=== PATIENT | male | born 1935 | race Caucasian/White ===

== ENCOUNTER → 2023-10-15 09:27 | Outpatient (REF) | payer MEDICARE, SELFPAY | LOC: RAD 09:27 | PROVIDERS: ATTENDING PHYSICIAN Internal Medicine Geriatric Medicine | DX: R33.9 Retention of urine, unspecified (principal); R82.998 Other abnormal findings in urine | CPT/HCPCS: 76770 ==

== ENCOUNTER 2023-12-26 20:54 | Inpatient (IN) | payer MEDICARE, SELFPAY ==
[2023-12-26 16:39] VITALS: BP 162/78; BMI 21.0
[2023-12-26 16:44] VITALS: BP 162/78
[2023-12-26 17:00] VITALS: BP 156/78
[2023-12-26 17:03] LABS: % Basophils 0.8 % (0-2); % Eosinophils 1.3 % (0-6); % Immature Granulocytes 0.4 % (0-0.5); % Lymphocytes 32.7 % (20.5-51.1); % Neutrophils 51.8 % (42.2-75.2); Absolute Eosinophils 0.1 10^3/uL (0-0.7); Absolute Lymphocytes 1.7 10^3/uL (1.2-3.4); Absolute Monocytes 0.7 10^3/uL (0.1-0.6); Absolute Neutrophils 2.8 10^3/uL (1.4-6.5); Hematocrit 37.2 % (39.0-52.0); Hemoglobin 12.6 g/dL (13.0-18.0); Mean Corp Hgb Conc. 33.9 g/dL (33.0-37.0); Mean Corpuscular Hgb 28.9 pg (27.0-31.0); Mean Corpuscular Volume 85.3 fL (80.0-94.0); Mean Platelet Volume 11.2 fL (7.4-10.4); Nucleated Red Blood Cells % 0 % (-); Platelet Count 149 10^3/uL (130-400); Red Blood Cell Count 4.36 10^6/uL (4.70-6.10); Red Cell Dist. Width 16.1 % (11.5-14.5); White Blood Cell Count 5.3 10^3/uL (4.8-10.8)
[2023-12-26 17:23] LABS: ALT (SGPT) 24 U/L (0-50); AST (SGOT) 43 U/L (17-59); Albumin 3.2 g/dl (3.5-5.0); Alkaline Phosphatase 92 U/L (38-126); Blood Urea Nitrogen 31 mg/dl (9-20); Calcium 9.6 mg/dl (8.4-10.2); Carbon Dioxide 29 mmol/L (22-30); Chloride 107 mmol/L (98-107); Estimated Creatinine Clearance 30 ml/min; Glucose 105 mg/dl (70-99); Potassium 3.7 mmol/L (3.5-5.1); Sodium 140 mmol/L (135-145); Total Bilirubin 1.1 mg/dl (0.2-1.3); Total Protein 5.9 g/dl (6.3-8.2); eGFR 38.06
[2023-12-26 18:00] VITALS: BP 148/83
[2023-12-26 18:05] LABS: Urine Albumin 1+ (Neg - Trace); Urine Bilirubin 1+ (Negative); Urine Character Very Cloudy (Clear); Urine Color Yellow; Urine Glucose Negative (Negative); Urine Ketone Negative (Negative); Urine Leukocyte 2+ (Negative); Urine Nitrite Positive (Negative); Urine Occult Blood 1+ (Negative); Urine Specific Gravity 1.015 (<1.030); Urine Urobilinogen 2+ (Neg - 1+)
[2023-12-26 18:27] LABS: Urine Bacteria Many (Negative); Urine White Cell >100 /HPF (0-5)
[2023-12-26 19:00] VITALS: BP 187/94
--- NOTE | 2023-12-26 19:07 | ED.GENMED ---
History of Present Illness
General
Chief Complaint: Failure to Thrive
Source: patient and family (Daughter)
Exam Limitations: none
Time Seen by Provider: 12/26/23 16:40
Nursing documentation reviewed up to this point in time: agreed with
Travel History
Have you had any contact with someone who has COVID-19?: No
Do you have any symptoms of coronavirus? Fever > 100 degrees, chills, cough, shortness of breath, sore throat, loss of taste or smell, muscle aches, or headache?: No
History of Present Illness
History of Present Illness:
Patient to ED for increasing weakness, confusion, falls. Daughter states over the past 2 weeks he has been weak. This week he has had 2 falls. Today she reports he was confused. He lives alone in independent living at [facility]. She states he
told her he fell this AM but could not remember what happened. Does not remember if he hit his head. Brought to ED via EMS for eval.
Past History
Past History
ED Past Medical History: HTN, Hypercholesterolemia and Other (peripheral arterial disease, spinal stenosis, blind right eye)
ED Past Surgical History: Cardiac (Stent X1) and Orthopedic
Social History
Tobacco: Former smoker
Alcohol: None
Drug: None
Personal:
Living: assisted
Employment: Retired
Family History
Family History: Hypertension and CAD
Review of Systems
Review of Systems
Allergies reviewed?: Yes
All Other Systems: ROS reviewed and negative except as documented in HPI and ROS
Constitutional: Reports no symptoms
EENT: Reports no symptoms
Respiratory: Reports no symptoms
Cardiac: Reports no symptoms
ABD/GI: Reports no symptoms
: Reports no symptoms
Musculoskeletal: Reports no symptoms
Skin: Reports no symptoms
Neurological: Reports weakness
Psychiatric: Reports no symptoms
Phy Exam
General Physical Exam
General Presentation: no apparent distress
General age: appears stated age
General Skin: warm and dry
General Habitus: frail
Cardiovascular Exam
Cardiovascular Exam: regular rate/rhythm
Pulmonary Exam
Pulmonary Exam: lungs clear, no respiratory distress and chest non tender
Gastrointestinal Exam
Gastrointestinal Exam: non tender and soft
Neurological Exam
Neurological Exam: alert, oriented x3, CN II-XII intact, no motor deficits and no sensory deficits
Cutler Coma Scale
Eye Opening: Spontaneous
Verbal Response: Oriented
Motor Response: Obeys Commands
GCS Total Score: 15
Musculoskeletal Exam
Musculoskeletal Exam: full ROM and neuro vasc intact
Skin Exam
Skin Exam: normal color, warm/dry and no rash
Psychiatric Exam
Psychiatric Exam: normal mood/affect
Course
Orders/Labs/Results
Orders:
Orders
12/26/23 16:43
TSH Reflex To Free T4 Routine
12/26/23 16:52
Electrocardiogram (*1) Urgent
Reason for Study: Vertigo / Dizzy
EKG- Treatment ONCE
12/26/23 16:53
CT Head W/o Iv Contrast Urgent
Comment:
Reason For Exam: fall
Complete Blood Count/With Diff Urgent
Comprehensive Metabolic Panel Urgent
Creatine Phosphokinase Urgent
12/26/23 17:53
Urinalysis Reflex To Culture Urgent
Date Specimen was Collected: 12/26/23
Time Specimen was Collected: 17:51
Urine Microscopic Reflex Cult Urgent
Urine Culture Urgent
JESSICA Source: U
Specimen Description:
Date Specimen was Collected: 12/26/23
Time Specimen was Collected: 17:51
12/26/23 19:14
Cefepime HCl [Maxipime] 2,000 mg IV NOW STA
12/26/23 20:11
Admit/Transfer Patient As Directed
Co-Sign Provider:
Level of Care: Inpatient admission
Assign to:: Telemetry
Physician / Group: Ceasar
Diagnosis: UTI, Frequent Falls
Reason for Telemetry: Arrhythmia
Date to Stop Telemetry: 12/29/23
Time to Stop Telemetry: 11:00
Reason for Hospitalization: UTI, Frequent Falls
Expected length of stay greater than two midnights?: Yes
ELOS- Estimated Length of Stay in days: 3
I certify the patient meets the requirements for IP care: Yes
12/26/23 20:12
Code Status As Directed
Resuscitation Status: Do not resuscitate
Reached after discussion with pt or family/Healthcare POA: Yes
12/26/23 20:16
DNR Bracelet Application ONCE
12/26/23 21:30
Acetaminophen [Tylenol] 650 mg PO Q4HPRN PRN
HydrALAZINE [Apresoline] 5 mg IV Q6HPRN PRN
Lactated Ringers [Lr] 1,000 ml IV 80 mls/hr
Polyethylene Glycol Powder [Miralax] 17 grams PO DAILY PRN
12/26/23 21:30
Activity As Directed
Activity Level: Ambulate
With Assistance
Bladder Scan As Directed
Follow Bladder Retention/Intermittent Cath Algorithm?: Yes
PRN if no void in __ hours: 6
Frequency: Per Retention Algorithm
If Bladder Scan Result >: 400
then:: Straight cath
EKG with chest pain [ECG as needed] As Directed
ECG as needed for:: Chest Pain
I/O [Intake/ Output] As Directed
Frequency: Per unit guidelines
Neurological Checks As Directed
Frequency: q4h
Orthostatic Vital Signs As Directed
Orthostatic VS Frequency: BID
Pneumatic Compression Sleeves As Directed
Type: Knee high
Straight Cath As Directed
Frequency: Per Retention Algorithm
Additional Instructions: straight cath as needed per acute urinary retention algorithm for 24 hrs
Additional Instructions: for bladder scan greater than 400 mL
Vital Signs As Directed
Frequency: Per unit guidelines
Weight As Directed
Frequency: Daily
Oxygen Therapy [O2 Therapy] [RESP] Routine
Titrate/Wean O2 to maintain O2 sat greater than (%): 94
Ot Eval And Treat Routine
PT Consult [Pt Eval And Treat] Routine
Activity Level: Ambulate
With Assistance
DX Deep Vein Thrombosis Video Routine
12/27/23 06:00
EKG [Electrocardiogram (*1)] IN AM
Reason for Study: Chest Pain
Regular
At Your Request: Limited Participation
Basic Metabolic Panel IN AM
Complete Blood Count/No Diff IN AM
12/27/23 08:00
Aspirin Low Dose EC [Aspir Low (Enteric Coated)] 81 mg PO DAILY
Atorvastatin [Lipitor] 40 mg PO DAILY
Docusate Sodium [Colace] 100 mg PO BID
Losartan [Cozaar] 50 mg PO DAILY
12/29/23 11:00
DC Protocol for Telemetry ONCE
Abnormal Lab Results
12/26/23 12/26/23
16:53 17:53
RBC 4.36 L 10^6/uL
(4.70-6.10)
Hgb 12.6 L g/dL
(13.0-18.0)
Hct 37.2 L %
(39.0-52.0)
RDW 16.1 H %
(11.5-14.5)
MPV 11.2 H fL
(7.4-10.4)
Absolute Monos (auto) 0.7 H 10^3/uL
(0.1-0.6)
Monocytes % 13.0 H %
(1.7-9.3)
BUN 31 H mg/dl
(9-20)
Creatinine 1.7 H mg/dL
(0.7-1.3)
Glucose 105 H mg/dl
(70-99)
Creatine Kinase 42 L U/L
(55-170)
Total Protein 5.9 L g/dl
(6.3-8.2)
Albumin 3.2 L g/dl
(3.5-5.0)
Ur Occult Blood Reflex 1+ A
(Negative)
Urine Nitrite (Reflex) Positive A
(Negative)
Urine Bilirubin 1+ A
(Negative)
Urine Urobilinogen 2+ A
(Neg - 1+)
Leukocyte Esterase Rfl 2+ A
(Negative)
Urine RBC 3-6 A /HPF
(0-2)
Urine WBC (Reflex) >100 A /HPF
(0-5)
Urine Bacteria (Reflex) Many A
(Negative)
Urine Albumin (Reflex) 1+ A
(Neg - Trace)
12/26/23 16:53
12/26/23 16:53
Vital Signs
Initial and Last Documented VS:
Initial Vital Signs
Temp Pulse Resp BP Pulse Ox
98.5 F 54 16 162/78 95
12/26/23 16:39 12/26/23 16:39 12/26/23 16:39 12/26/23 16:39 12/26/23 16:39
Last Documented Vital Signs
Temp Pulse Resp BP Pulse Ox
98.1 F 52 18 172/83 97
12/26/23 21:47 12/26/23 21:47 12/26/23 21:47 12/26/23 21:47 12/26/23 21:47
*Radiology
Radiology exam reviewed: radiology read reviewed
*Pulse Oximetry
Patient hypoxic: no
*Critical Care Note
Total Time (30-74mins, 75-104mins- exclusive of procedures): Not Applicable
ED Attending Note
-
Portions of this chart may have been created with voice recognition software.� Occasional wrong word or��sound alike� substitutions may have occurred due to the inherent limitations of voice recognition software.
Discharge Plan
Departure
Patient Disposition: Admit
Date of Disposition: 12/26/23
Time of Disposition: 19:15
Presentation/result/management discussed w/ accepting MD/DO: Hospitalist
Patient with high blood pressure during this ER visit?: No
Condition: Fair
Covid-19: Not Applicable
Discharge Problem:
Weakness, Urinary tract infection
Interventions
Interventions:
*Risk Screen - Suicide Last Done: 12/26/23 16:39
*General Assessment Last Done: 12/26/23 16:39
*Neglect/Abuse Screening Last Done: 12/26/23 16:39
ED- Fall Risk Assessment Last Done: 12/26/23 16:46
*ED COVID-19 Vaccine History Last Done: 12/26/23 16:39
*Nursing Disposition Last Done: 12/26/23 21:31
Discharge Date and Time
Discharge Date/Time: 12/26/23 21:31
[2023-12-26] MEDS: MAXIPIME 2000 MG IV (19:34)
--- NOTE | 2023-12-26 20:18 | HPS.HSE ---
Family Physician
-
Family Physician: Jose Rich
Chief Complaint
-
Falls
History of Present Illness
Patient is an 88y M with PMH significant for hypertension, CKD and frequent falls who presents to ED for evaluation of frequent falls. Patient states that he was brought in by his daughter given concern with frequency of falling. Patient notes
that he had 2 episodes of falling yesterday. He has struck his head during the falls at times - but he denies any LOC. He denies any prodrome of lightheadedness, dizziness, chest pain or dyspnea. He states that he is 'unsteady' and notes that he
loses his balance easily. Patient states that there is a chance he will fall 'any time I get up'.
He states that he has fallen in all directions - not typically to one side.
Patient indicates that he spends about 75% of his time in bed. He complains of cold intolerance.
He complains of incontinence of bowel and bladder - and notes that efforts to get to the bathroom are what typically result in his falls.
He complains of pain across his very low back at present. He denies any other areas of pain including headache. He denies any radicular pain into the buttocks or legs.
Medical History
Past Medical History
Past Medical History: Reports Other
Additional Past Medical History:
Hypertension
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
Lumbar DDD / Spinal Stenosis
CKD III
ASCVD
Past Surgical History: Reports Other
Additional Past Surgical History:
PTCA with Stent
Bilateral MICKEY
Social History
Tobacco: Former Smoker (Quit 20 years ago. > 50 pack years total use.)
Alcohol: None
Drug: None
Family History
Family History: Not pertinent
Allergies / Home Medications
Allergies reflects when Allergies were last updated in [facility].
Home Medications with original date entered in [employer]
Allergy/Medication List:
Allergies
Allergy/AdvReac Type Severity Reaction Status Date / Time
No Known Allergies Allergy Verified 11/21/21 03:13
Home Medications
losartan 50 mg tablet 50 mg PO DAILY Blood pressure 05/12/18
aspirin 81 mg tablet,delayed release 81 mg PO DAILY Blood clot prevention/tx 05/30/19
atorvastatin 40 mg tablet 40 mg PO DAILY High cholesterol 11/21/21
Bifidobacterium infantis 4 mg capsule (Align) 4 mg PO DAILY 12/26/23
cholecalciferol (vitamin D3) 25 mcg (1,000 unit) tablet (Vitamin D3) 25 mcg PO DAILY 12/26/23
Review of Systems
-
History Source: Patient
Constitutional: Reports Fatigue; Denies Fever or Chills
Respiratory: Denies Cough or Trouble Breathing
Cardiac: Denies Chest Pain or Palpitations
Abdomen/GI: Reports Other (Loose stools / incontinence.); Denies Abdominal Pain, Nausea or Vomiting
: Reports Incontinence; Denies Dysuria
Musculoskeletal: Reports Other (Low Back Pain); Denies Joint Pain or Edema
Neurological: Reports Weakness; Denies Dizzy or Headache
Psych: Denies Depression or Anxiety
Physical Exam
Vital Signs
Vital Signs
Temp Pulse Resp BP Pulse Ox
98.5 F 48 14 187/94 93
12/26/23 16:39 12/26/23 19:35 12/26/23 19:35 12/26/23 19:00 12/26/23 19:35
Physical Exam
General: Other (88y M in no acute distress. Very bundled in blankets.)
HEENT: PERRLA and Other (Dry MM.)
Respiratory: Clear; No Wheezes, Rales or Rhonchi
Cardiac: S1/S2 and Bradycardia; No Murmur
GI: Soft, Non Tender, Non Distended and Normal Bowel Sounds
Musculoskeletal: No Clubbing, No Cyanosis and No Edema
Neuro: Awake, Alert, Oriented and Other (Bradykinesia including slowness of speech. No focal weakness appreciated.)
Psych: No Anxious or Depressed
Laboratory Results
-
12/26/23 16:53
12/26/23 16:53
Laboratory Results
Total Bilirubin 1.1 mg/dl (0.2-1.3) 12/26/23 16:53
AST 43 U/L (17-59) 12/26/23 16:53
ALT 24 U/L (0-50) 12/26/23 16:53
Alkaline Phosphatase 92 U/L (38-126) 12/26/23 16:53
Impression/Plan
-
A/P: Patient is an 88y M with PMH significant for spinal stenosis, HTN and CKD who presents to ED complaining of frequent falls.
Frequent Falls
Lumbar Spinal Stenosis
- Admit for further evaluation and treatment.
- Symptoms appear to be chronic and are very likely related to spinal stenosis +/- significant deconditioning at this point.
- Issues with incontinence may also be related to spinal stenosis +/- urge incontinence, difficulty getting to facilities due to unsteady gait.
- PT / OT evaluations.
- Consider repeat spinal imaging - though with such chronicity, doubt that any changes would be reversible at this point.
- Follow for gait stability.
- CM eval for discharge plans.
UTI
- UA consistent with UTI and complaints of incontinence - although this seems chronic.
- IV ceftriaxone for now and follow-up culture data.
- Follow for any improvement in urinary incontinence, gait, etc.
Benign Hypertension
- BP elevated in the ED.
- Continue outpatient losartan.
- Hydralazine PRN for very high BP.
- Adjust regimen as needed for improved control.
Bradycardia
- Stable. Again, this is a known and chronic issue.
- Has not had rates / pauses to a degree that would warrant PPM placement in the past.
- Monitor on telemetry for now.
- Check TFTs.
- Consider Cardio eval if rates decrease or significant pauses are appreciated.
ASCVD
- Stable. No complaints of chest pain.
- History of PTCA with stent.
- Continue ASA, statin, etc.
DVT Prophylaxis: SCDs
Code Status: DNR
[2023-12-26 21:47] VITALS: BP 172/83
[2023-12-26 21:49] VITALS: BMI 20.5
[2023-12-26 22:03] LABS: Creatine Phosphokinase 42 U/L (55-170)
[2023-12-26] MEDS: TYLENOL 650 MG PO (22:13)
[2023-12-26] MEDS: LR 1000 IV (22:14)
[2023-12-26 22:45] LABS: TSH Reflex To Free T4 2.33 uIU/ml (0.47-4.68)
[2023-12-27] VITALS (8 sets, daily range): BP systolic 108–165; BP diastolic 61–90; PULSE 82–83; O2SAT 96; BMI 20.5
[2023-12-27] MEDS: FLUSH (NSS) 1 FLUSH IV (04:30)
[2023-12-27] MEDS: ROCEPHIN 1000 MG IV (04:30)
[2023-12-27] MEDS: STERILE WATER FOR INJECTION 10 ML IV (04:31)
[2023-12-27 06:20] LABS: Hematocrit 36.1 % (39.0-52.0); Mean Corp Hgb Conc. 33.2 g/dL (33.0-37.0); Mean Corpuscular Hgb 29.1 pg (27.0-31.0); Mean Corpuscular Volume 87.6 fL (80.0-94.0); Platelet Count 130 10^3/uL (130-400); Red Blood Cell Count 4.12 10^6/uL (4.70-6.10); Red Cell Dist. Width 15.9 % (11.5-14.5); White Blood Cell Count 5.3 10^3/uL (4.8-10.8)
[2023-12-27 06:50] LABS: Blood Urea Nitrogen 33 mg/dl (9-20); Calcium 9.1 mg/dl (8.4-10.2); Carbon Dioxide 25 mmol/L (22-30); Chloride 109 mmol/L (98-107); Estimated Creatinine Clearance 33 ml/min; Glucose 83 mg/dl (70-99); Potassium 3.7 mmol/L (3.5-5.1); Sodium 139 mmol/L (135-145); eGFR 44.23
[2023-12-27] MEDS: COZAAR 50 MG PO (08:02)
[2023-12-27] MEDS: ASPIR LOW (ENTERIC COATED) 81 MG PO (08:02)
[2023-12-27] MEDS: COLACE 100 MG PO (08:02)
[2023-12-27] MEDS: LIPITOR 40 MG PO (08:03)
[2023-12-27] MEDS: LR 1000 IV ×2 (10:57→22:11)
--- NOTE | 2023-12-27 11:58 | PTCARENOTE ---
Assumed care of pt at AM shift change. AAOx3 but intermittently confused. Pt with multiple attempts to get OOB unassisted, bed and chair alarms in place. Pt denying pain at this time. Daughter updated on plan of care over the phone.
--- NOTE | 2023-12-27 12:43 | W.PN.HOSP.TC ---
Today's Communication/Plan
-
Monitor vitals
See plan
Trial of Seroquel overnight
Discussed with daughter over the phone
Suspect cognitive impairment
Monitor urine culture
Continue antibiotics
Assessment / Plan
Assessment / Plan
Frequent Falls
Lumbar Spinal Stenosis
- Admit for further evaluation and treatment.
- Symptoms appear to be chronic and are very likely related to spinal stenosis +/- significant deconditioning at this point.
- Issues with incontinence may also be related to spinal stenosis +/- urge incontinence, difficulty getting to facilities due to unsteady gait.
- PT / OT evaluations.
- Consider repeat spinal imaging if symptoms worse - though with such chronicity, doubt that any changes would be reversible at this point.
- Follow for gait stability.
UTI
- UA consistent with UTI and complaints of incontinence - although this seems chronic.
- IV ceftriaxone for now and follow-up culture data.
- Follow for any improvement in urinary incontinence, gait, etc.
Benign Hypertension
- Continue outpatient losartan.
- Hydralazine PRN for very high BP.
- Adjust regimen as needed for improved control.
Bradycardia
- Stable. Again, this is a known and chronic issue.
- Has not had rates / pauses to a degree that would warrant PPM placement in the past.
- Monitor on telemetry for now.
TSH wnl
- Consider Cardio eval if rates decrease or significant pauses are appreciated.
History of CKD 3
Monitor
CAD s/p PCI 2018
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
ASCVD
- Stable. No complaints of chest pain.
- History of PTCA with stent.
- Continue ASA, statin, etc.
Suspect cognitive impairment
no official dx of dementia
CT without acute CVA
patient has been following up outpatient with pcp for possible dementia
trial to seroquel overnight
MRI in 2021 showed moderate to advanced atrophy
DVT Prophylaxis: SCDs
Code Status: DNR
General: Other (88y M in no acute distress)
HEENT: PERRLA and Other (Dry MM.)
Respiratory: Clear; No Wheezes, Rales or Rhonchi
Cardiac: S1/S2 and Bradycardia; No Murmur
GI: Soft, Non Tender, Non Distended and Normal Bowel Sounds
Musculoskeletal: No Clubbing, No Cyanosis and No Edema
Neuro: Awake, Alert, Oriented and Other (Bradykinesia including slowness of speech. No focal weakness appreciated.)
Psych: No Anxious or Depressed
Anticipated Discharge: 24 - 48 hours
Subjective/Interval History
-
Date of Service: December 27, 2023
denies pain
Objective Data
-
Labs:
Laboratory Results
12/27/23 12/27/23
04:29 04:30
WBC 5.3
Hgb 12.0 L
Hct 36.1 L
Plt Count 130
Sodium 139
Potassium 3.7
Chloride 109 H
Carbon Dioxide 25
BUN 33 H
Creatinine 1.5 H
Glucose 83
Calcium 9.1
Vital Signs:
Vital Signs
Temp Pulse Resp BP Pulse Ox
98.1 F 80 18 108/74 96
12/27/23 11:12 12/27/23 11:12 12/27/23 11:12 12/27/23 11:12 12/27/23 11:12
I&O
12/26/23 12/27/23 12/28/23
06:59 06:59 06:59
Intake Total 800 / 800
Output Total 150 / 150
Balance 650 / 650
[2023-12-27] MEDS: STERILE WATER FOR INJECTION 2.10000000000000009 ML IM (14:54)
[2023-12-27] MEDS: ZYPREXA 5 MG IM (14:54)
--- NOTE | 2023-12-27 15:42 | PTCARENOTE ---
Patient with continuous attempts to get OOB without assistance, medsitter in place. Pt unable to be redirected by medsitter and growing increasingly agitated and pulled out IV. made aware, order for IM zyprexa obtained and administered with
adequate relief. Plan of care ongoing.
--- NOTE | 2023-12-27 16:38 | CM ---
center manager reviewed patient's chart and met with patient and spoke with patient's daughter by phone, patient resides at [facility] living, patient was independent with adl's with assistance from daughter and used a walker with
ambulation, physical therapy are recommending skilled placement and patient's daughter has selected [facility], referral sent to [facility] skilled.
Plan; Skilled placement at [facility].
[2023-12-27] MEDS: TYLENOL 650 MG PO (19:29)
[2023-12-27] MEDS: COLACE PO (19:29)
[2023-12-27] MEDS: SEROQUEL 12.5 MG PO (22:11)
[2023-12-28 03:00] VITALS: BP 156/89; BP 175/89; BP 175/97; PULSE 71; PULSE 72
[2023-12-28] MEDS: FLUSH (NSS) 2 FLUSH IV (03:41)
[2023-12-28] MEDS: ROCEPHIN 1000 MG IV (03:42)
[2023-12-28] MEDS: STERILE WATER FOR INJECTION 10 ML IV (03:42)
[2023-12-28 05:38] LABS: % Basophils 0.7 % (0-2); % Eosinophils 0.9 % (0-6); % Immature Granulocytes 0.4 % (0-0.5); % Lymphocytes 23.5 % (20.5-51.1); % Monocytes 10.8 % (1.7-9.3); % Neutrophils 63.7 % (42.2-75.2); Absolute Basophils 0.1 10^3/uL (0-0.2); Absolute Eosinophils 0.1 10^3/uL (0-0.7); Absolute Monocytes 0.9 10^3/uL (0.1-0.6); Absolute Neutrophils 5.4 10^3/uL (1.4-6.5); Hematocrit 36.6 % (39.0-52.0); Hemoglobin 12.5 g/dL (13.0-18.0); Mean Corp Hgb Conc. 34.2 g/dL (33.0-37.0); Mean Corpuscular Hgb 28.8 pg (27.0-31.0); Mean Corpuscular Volume 84.3 fL (80.0-94.0); Mean Platelet Volume 11.4 fL (7.4-10.4); Nucleated Red Blood Cells % 0 % (-); Platelet Count 140 10^3/uL (130-400); Red Blood Cell Count 4.34 10^6/uL (4.70-6.10); Red Cell Dist. Width 15.8 % (11.5-14.5); White Blood Cell Count 8.5 10^3/uL (4.8-10.8)
[2023-12-28 06:00] VITALS: BMI 21.0
[2023-12-28 06:15] LABS: Blood Urea Nitrogen 26 mg/dl (9-20); Calcium 9.2 mg/dl (8.4-10.2); Carbon Dioxide 23 mmol/L (22-30); Chloride 106 mmol/L (98-107); Estimated Creatinine Clearance 36 ml/min; Glucose 94 mg/dl (70-99); Potassium 3.8 mmol/L (3.5-5.1); Sodium 134 mmol/L (135-145); eGFR 48.04
[2023-12-28 07:00] VITALS: BP 156/80
[2023-12-28] MEDS: ASPIR LOW (ENTERIC COATED) 81 MG PO (09:41)
[2023-12-28] MEDS: COLACE 100 MG PO ×2 (09:42→22:48)
[2023-12-28] MEDS: LIPITOR 40 MG PO (09:42)
[2023-12-28] MEDS: COZAAR 50 MG PO (09:42)
[2023-12-28 11:00] VITALS: BP 109/69; BP 155/87; PULSE 81; PULSE 88
--- NOTE | 2023-12-28 12:31 | CM ---
Chart reviewed and patient is for skilled at [facility] when stable.
Plan; Referral sent to [facility].
--- NOTE | 2023-12-28 12:41 | W.PN.HOSP.TC ---
Today's Communication/Plan
-
Monitor vital signs see plan
Appears to develop delirium, continue with low-dose Seroquel
If mental status does not improve then will need psychiatry evaluation
Monitor mental status closely
Continue with antibiotics
Teds, start gentle hydration
Daughter updated over the phone
Assessment / Plan
Assessment / Plan
Frequent Falls
Lumbar Spinal Stenosis
- Admit for further evaluation and treatment.
- Symptoms appear to be chronic and are very likely related to spinal stenosis +/- significant deconditioning at this point.
- Issues with incontinence may also be related to spinal stenosis +/- urge incontinence, difficulty getting to facilities due to unsteady gait.
- PT / OT evaluations.
- Consider repeat spinal imaging if symptoms worse - though with such chronicity, doubt that any changes would be reversible at this point.
- Follow for gait stability.
UTI
- UA consistent with UTI and complaints of incontinence - although this seems chronic.
- IV ceftriaxone for now and follow-up culture data.
- Follow for any improvement in urinary incontinence, gait, etc.
Change in mental status suspect secondary to acute delirium
monitor
low dose seroquel overnight
Suspect cognitive impairment
no official dx of dementia
CT without acute CVA
patient has been following up outpatient with pcp for possible dementia
trial to seroquel overnight
MRI in 2021 showed moderate to advanced atrophy
Benign Hypertension
- Continue outpatient losartan.
- Hydralazine PRN for very high BP.
- Adjust regimen as needed for improved control.
Bradycardia
- Stable. Again, this is a known and chronic issue.
- Has not had rates / pauses to a degree that would warrant PPM placement in the past.
- Monitor on telemetry for now.
TSH wnl
- Consider Cardio eval if rates decrease or significant pauses are appreciated.
History of CKD 3
Monitor
CAD s/p PCI 2019
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
ASCVD
- Stable. No complaints of chest pain.
- History of PTCA with stent.
- Continue ASA, statin, etc.
mild hematuria 5/6 which is nor resolved
likely from Traumatic Farrar during straight cath in the ER
now bleeding anymore
monitor
post void residual not significant
DVT Prophylaxis: SCDs
Code Status: DNR
General: Other (88y M in no acute distress)
HEENT: PERRLA and Other (Dry MM.)
Respiratory: Clear; No Wheezes, Rales or Rhonchi
Cardiac: S1/S2 and Bradycardia; No Murmur
GI: Soft, Non Tender, Non Distended and Normal Bowel Sounds
Musculoskeletal: No Edema
Neuro: Awake, Alert
Psych: No Anxious or Depressed
I spent a total of 52 minutes with the patient or on the floor. More than 50% of this time involved counseling and coordination of care.
Anticipated Discharge: 24 - 48 hours
Subjective/Interval History
-
Date of Service: December 28, 2023
denies pain
Objective Data
-
Labs:
Laboratory Results
12/28/23
05:21
WBC 8.5
Hgb 12.5 L
Hct 36.6 L
Plt Count 140
Sodium 134 L
Potassium 3.8
Chloride 106
Carbon Dioxide 23
BUN 26 H
Creatinine 1.4 H
Glucose 94
Calcium 9.2
Vital Signs:
Vital Signs
Temp Pulse Resp BP Pulse Ox
97.8 F 81 18 155/87 95
12/28/23 11:00 12/28/23 11:00 12/28/23 11:00 12/28/23 11:00 12/28/23 11:00
I&O
0512/28/23 12/29/23
06:59 06:59 06:59
Intake Total 800 / 800
Output Total 150 / 150
Balance 650 / 650
[2023-12-28] MEDS: LR 1000 IV (13:15)
[2023-12-28 15:00] VITALS: BP 129/69
[2023-12-28 19:15] VITALS: BP 165/86
[2023-12-28] MEDS: SEROQUEL 12.5 MG PO (22:48)
[2023-12-28] MEDS: TYLENOL 650 MG PO (22:48)
[2023-12-28 22:56] VITALS: BP 154/89
[2023-12-29] VITALS (8 sets, daily range): BP systolic 71–152; BP diastolic 43–92; PULSE 65–85; BMI 20.9
[2023-12-29] MEDS: LR 1000 IV ×2 (04:06→17:51)
[2023-12-29] MEDS: STERILE WATER FOR INJECTION 10 ML IV (04:07)
[2023-12-29] MEDS: ROCEPHIN 1000 MG IV (04:07)
[2023-12-29] MEDS: FLUSH (NSS) 2 FLUSH IV (04:08)
[2023-12-29 05:19] LABS: % Basophils 0.9 % (0-2); % Eosinophils 3.5 % (0-6); % Immature Granulocytes 0.4 % (0-0.5); % Lymphocytes 28.1 % (20.5-51.1); % Monocytes 10.5 % (1.7-9.3); % Neutrophils 56.6 % (42.2-75.2); Absolute Basophils 0.1 10^3/uL (0-0.2); Absolute Eosinophils 0.2 10^3/uL (0-0.7); Absolute Lymphocytes 1.5 10^3/uL (1.2-3.4); Absolute Monocytes 0.6 10^3/uL (0.1-0.6); Absolute Neutrophils 3.1 10^3/uL (1.4-6.5); Hematocrit 33.8 % (39.0-52.0); Hemoglobin 11.4 g/dL (13.0-18.0); Mean Corp Hgb Conc. 33.7 g/dL (33.0-37.0); Mean Corpuscular Hgb 29.2 pg (27.0-31.0); Mean Corpuscular Volume 86.7 fL (80.0-94.0); Mean Platelet Volume 11.2 fL (7.4-10.4); Nucleated Red Blood Cells % 0 % (-); Platelet Count 126 10^3/uL (130-400); Red Cell Dist. Width 15.9 % (11.5-14.5); White Blood Cell Count 5.5 10^3/uL (4.8-10.8)
[2023-12-29 05:35] LABS: Blood Urea Nitrogen 26 mg/dl (9-20); Carbon Dioxide 26 mmol/L (22-30); Chloride 106 mmol/L (98-107); Estimated Creatinine Clearance 34 ml/min; Glucose 84 mg/dl (70-99); Potassium 3.7 mmol/L (3.5-5.1); Sodium 134 mmol/L (135-145); eGFR 44.23
[2023-12-29] MEDS: COLACE 100 MG PO (08:00)
[2023-12-29] MEDS: COZAAR 50 MG PO (08:00)
[2023-12-29] MEDS: LIPITOR 40 MG PO (08:00)
[2023-12-29] MEDS: ASPIR LOW (ENTERIC COATED) 81 MG PO (08:00)
--- NOTE | 2023-12-29 11:31 | W.PN.HOSP.TC ---
Today's Communication/Plan
-
Monitor vitals
See plan
Delirium appears to be slowly improving
Continue with Seroquel
switch abx to PO cefdinir
pt/ot
Assessment / Plan
Assessment / Plan
Frequent Falls
Lumbar Spinal Stenosis
- Admit for further evaluation and treatment.
- Symptoms appear to be chronic and are very likely related to spinal stenosis +/- significant deconditioning at this point.
- Issues with incontinence may also be related to spinal stenosis +/- urge incontinence, difficulty getting to facilities due to unsteady gait.
- PT / OT evaluations.
- Consider repeat spinal imaging if symptoms worse - though with such chronicity, doubt that any changes would be reversible at this point.
- Follow for gait stability.
UTI
- UA consistent with UTI and complaints of incontinence -urine culture contaminant. Given symptoms we will treat. Switch antibiotics to cefdinir
Change in mental status suspect secondary to acute delirium
monitor, slowly improving
low dose seroquel overnight
Suspect baseline cognitive impairment
no official dx of dementia
CT without acute CVA
patient has been following up outpatient with pcp for possible dementia
MRI in 2021 showed moderate to advanced atrophy
Benign Hypertension
- Continue outpatient losartan.
- Hydralazine PRN for very high BP.
- Adjust regimen as needed for improved control.
Bradycardia
- Stable. Again, this is a known and chronic issue.
- Has not had rates / pauses to a degree that would warrant PPM placement in the past.
- Monitor on telemetry for now.
TSH wnl
- Consider Cardio eval if rates decrease or significant pauses are appreciated.
History of CKD 3
Monitor
Thrombocytopenia
Monitor
CAD s/p PCI 2019
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
ASCVD
- Stable. No complaints of chest pain.
- History of PTCA with stent.
- Continue ASA, statin, etc.
mild hematuria 5/6 which is nor resolved
likely from Traumatic Farrar during straight cath in the ER
now bleeding anymore
monitor
post void residual not significant
DVT Prophylaxis: SCDs; lovenox
Code Status: DNR
General: Other (88y M in no acute distress)
HEENT: PERRLA
Respiratory: Clear; No Wheezes, Rales or Rhonchi
Cardiac: S1/S2 and Bradycardia; No Murmur
GI: Soft, Non Tender, Non Distended and Normal Bowel Sounds
Musculoskeletal: No Edema
Neuro: Awake, Alert
Psych: No Anxious or Depressed
I spent a total of 52 minutes with the patient or on the floor. More than 50% of this time involved counseling and coordination of care.
Anticipated Discharge: 24 - 48 hours
Subjective/Interval History
-
Date of Service: December 29, 2023
denies pain
Objective Data
-
Labs:
Laboratory Results
12/29/23
04:52
WBC 5.5
Hgb 11.4 L
Hct 33.8 L
Plt Count 126 L
Sodium 134 L
Potassium 3.7
Chloride 106
Carbon Dioxide 26
BUN 26 H
Creatinine 1.5 H
Glucose 84
Calcium 9.0
Vital Signs:
Vital Signs
Temp Pulse Resp BP Pulse Ox
97.5 F 66 18 146/84 96
12/29/23 11:00 12/29/23 11:00 12/29/23 11:00 12/29/23 11:00 12/29/23 11:00
I&O
12/28/23 12/29/23 12/30/23
06:59 06:59 06:59
Intake Total 1460 / 1460
Balance 1460 / 1460
--- NOTE | 2023-12-29 12:13 | CM ---
Chart reviewed and plan is for skilled placement at [facility] when stable, patient has been accepted at [facility].
Plan; Skilled placement at [facility]
Report [phone]
--- NOTE | 2023-12-29 13:16 | PN.CDI ---
CDI
- -
CDI:
Physician Documentation Request
Admit Date: 12/26/23 20:54
Dear Doctor Shant,
Please review the following and provide your response in the progress notes.
Clinical Indicators:
Pt admitted with UTI
Documented per ED, ' ... Today she reports he was confused. He lives alone in independent living at [facility]. She states he told her he fell this AM but could not remember what happened. ...'
Progress note 12/27,' Appears to develop delirium, continue with low-dose Seroquel If mental status does not improve then will need psychiatry evaluation Monitor mental status closely...'
Patient care note 12/26 @ 1542,' Patient with continuous attempts to get OOB without assistance, medsitter in place. Pt unable to be redirected by medsitter and growing increasingly agitated and pulled out IV. made aware, order for IM Zyprexa ...'
Based on the above, could you clarify in the Progress Notes and Discharge Summary which, if any of the following, is the most likely etiology of the confusion/altered mental status.
Multifactorial due to Metabolic Encephalopathy/Acute Delirium with possible Dementia
Acute Delirium only
Other
Use of terms such as suspected, likely, concern for, or probable (associated with a specific diagnosis that is being evaluated, monitored, or treated as if it exists) are acceptable and can be coded in the inpatient setting, when documented at the
time of discharge.
Thank you,
Roseanna Carrasco RN
CDI Specialist
[place] [facility]
Please use your independent medical judgment in providing your response.
[2023-12-29] MEDS: LOVENOX 40 MG SC (17:51)
[2023-12-29] MEDS: COLACE PO (21:11)
[2023-12-29] MEDS: SEROQUEL 12.5 MG PO (21:12)
[2023-12-30] VITALS (9 sets, daily range): BP systolic 98–154; BP diastolic 51–80; PULSE 50–78; O2SAT 97; BMI 21.6
[2023-12-30 06:37] LABS: % Basophils 0.9 % (0-2); % Eosinophils 3.3 % (0-6); % Immature Granulocytes 0.3 % (0-0.5); % Lymphocytes 35.1 % (20.5-51.1); % Monocytes 9.4 % (1.7-9.3); Absolute Basophils 0.1 10^3/uL (0-0.2); Absolute Eosinophils 0.2 10^3/uL (0-0.7); Absolute Monocytes 0.5 10^3/uL (0.1-0.6); Absolute Neutrophils 2.9 10^3/uL (1.4-6.5); Hematocrit 35.5 % (39.0-52.0); Hemoglobin 12.2 g/dL (13.0-18.0); Mean Corp Hgb Conc. 34.4 g/dL (33.0-37.0); Mean Corpuscular Hgb 29.3 pg (27.0-31.0); Mean Corpuscular Volume 85.3 fL (80.0-94.0); Mean Platelet Volume 11.8 fL (7.4-10.4); Nucleated Red Blood Cells % 0 % (-); Platelet Count 156 10^3/uL (130-400); Red Blood Cell Count 4.16 10^6/uL (4.70-6.10); Red Cell Dist. Width 16.3 % (11.5-14.5); White Blood Cell Count 5.8 10^3/uL (4.8-10.8)
[2023-12-30 06:57] LABS: Blood Urea Nitrogen 33 mg/dl (9-20); Calcium 9.3 mg/dl (8.4-10.2); Carbon Dioxide 25 mmol/L (22-30); Chloride 106 mmol/L (98-107); Estimated Creatinine Clearance 33 ml/min; Glucose 99 mg/dl (70-99); Sodium 135 mmol/L (135-145); eGFR 40.93
[2023-12-30] MEDS: LR 1000 IV (07:23)
[2023-12-30] MEDS: LIPITOR 40 MG PO (07:36)
[2023-12-30] MEDS: COLACE 100 MG PO ×2 (07:36→20:34)
[2023-12-30] MEDS: ASPIR LOW (ENTERIC COATED) 81 MG PO (07:37)
[2023-12-30] MEDS: OMNICEF 300 MG PO ×2 (07:37→20:34)
[2023-12-30] MEDS: COZAAR 50 MG PO (07:37)
--- NOTE | 2023-12-30 11:57 | W.PN.HOSP.TC ---
Today's Communication/Plan
-
monitor vitals
see plan
Monitor mental status
Continue with antibiotics
PT/OT
Monitor orthostatics
Teds
Daughter updated over the phone
Assessment / Plan
Assessment / Plan
Frequent Falls
Lumbar Spinal Stenosis
- Admit for further evaluation and treatment.
- Symptoms appear to be chronic and are very likely related to spinal stenosis +/- significant deconditioning at this point.
- Issues with incontinence may also be related to spinal stenosis +/- urge incontinence, difficulty getting to facilities due to unsteady gait.
- PT / OT evaluations.
- Consider repeat spinal imaging if symptoms worse - though with such chronicity, doubt that any changes would be reversible at this point.
- Follow for gait stability.
UTI
- UA consistent with UTI and complaints of incontinence -urine culture contaminant. Given symptoms we will treat. Switch antibiotics to cefdinir
Change in mental status suspect secondary to acute delirium
do not suspect TME
monitor, slowly improving
low dose seroquel overnight
Suspect baseline cognitive impairment
no official dx of dementia
CT without acute CVA
patient has been following up outpatient with pcp for possible dementia
MRI in 2021 showed moderate to advanced atrophy
Benign Hypertension
- Continue outpatient losartan.
- Hydralazine PRN for very high BP. also has orthostatic hypotension now. Check TSH and cortisol in AM.
Bradycardia
- Stable. Again, this is a known and chronic issue.
- Has not had rates / pauses to a degree that would warrant PPM placement in the past.
- Monitor on telemetry for now.
TSH wnl
- Consider Cardio eval if rates decrease or significant pauses are appreciated.
History of CKD 3
Monitor
Thrombocytopenia
Monitor
CAD s/p PCI 2019
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
ASCVD
- Stable. No complaints of chest pain.
- History of PTCA with stent.
- Continue ASA, statin, etc.
mild hematuria 5/6 which is now resolved
likely from Traumatic Farrar during straight cath in the ER
no bleeding anymore
monitor
post void residual not significant
DVT Prophylaxis: SCDs; lovenox
Code Status: DNR
General: Other (88y M in no acute distress)
HEENT: PERRLA
Respiratory: Clear; No Wheezes, Rales or Rhonchi
Cardiac: S1/S2 and Bradycardia; No Murmur
GI: Soft, Non Tender, Non Distended and Normal Bowel Sounds
Musculoskeletal: No Edema
Neuro: Awake, Alert
Psych: No Anxious or Depressed
I spent a total of 53 minutes with the patient or on the floor. More than 50% of this time involved counseling and coordination of care.
Anticipated Discharge: 24 - 48 hours
Subjective/Interval History
-
Date of Service: December 30, 2023
much more alert today
Objective Data
-
Labs:
Laboratory Results
12/30/23
05:34
WBC 5.8
Hgb 12.2 L
Hct 35.5 L
Plt Count 156 D
Sodium 135
Potassium 4.0
Chloride 106
Carbon Dioxide 25
BUN 33 H
Creatinine 1.6 H
Glucose 99
Calcium 9.3
Vital Signs:
Vital Signs
Temp Pulse Resp BP Pulse Ox
97.6 F 58 14 119/58 95
12/30/23 11:00 12/30/23 11:00 12/30/23 11:00 12/30/23 11:00 12/30/23 11:00
I&O
12/29/23 12/30/23 12/31/23
06:59 06:59 06:59
Intake Total 1460 / 1460 2160 / 2160
Balance 1460 / 1460 2159 / 2159
[2023-12-30] MEDS: LOVENOX 40 MG SC (17:20)
[2023-12-30] MEDS: SEROQUEL 12.5 MG PO (21:47)
[2023-12-31 03:05] VITALS: BP 153/71
[2023-12-31 05:53] LABS: % Basophils 0.9 % (0-2); % Eosinophils 3.2 % (0-6); % Immature Granulocytes 0.3 % (0-0.5); % Lymphocytes 33.3 % (20.5-51.1); % Monocytes 8.2 % (1.7-9.3); % Neutrophils 54.1 % (42.2-75.2); Absolute Basophils 0.1 10^3/uL (0-0.2); Absolute Eosinophils 0.2 10^3/uL (0-0.7); Absolute Monocytes 0.5 10^3/uL (0.1-0.6); Absolute Neutrophils 3.2 10^3/uL (1.4-6.5); Hematocrit 37.4 % (39.0-52.0); Hemoglobin 12.3 g/dL (13.0-18.0); Mean Corp Hgb Conc. 32.9 g/dL (33.0-37.0); Mean Corpuscular Hgb 28.6 pg (27.0-31.0); Mean Platelet Volume 12.2 fL (7.4-10.4); Nucleated Red Blood Cells % 0 % (-); Platelet Count 140 10^3/uL (130-400); Red Cell Dist. Width 16.4 % (11.5-14.5); White Blood Cell Count 5.9 10^3/uL (4.8-10.8)
[2023-12-31 06:00] VITALS: BMI 22.1
[2023-12-31 06:00] LABS: Blood Urea Nitrogen 30 mg/dl (9-20); Calcium 9.1 mg/dl (8.4-10.2); Carbon Dioxide 26 mmol/L (22-30); Chloride 106 mmol/L (98-107); Estimated Creatinine Clearance 33 ml/min; Glucose 101 mg/dl (70-99); Potassium 4.1 mmol/L (3.5-5.1); Sodium 134 mmol/L (135-145); eGFR 40.93
[2023-12-31 07:00] VITALS: BP 143/73
[2023-12-31 07:27] LABS: Free T4 1.04 ng/dl (0.78-2.19)
[2023-12-31] MEDS: OMNICEF 300 MG PO ×2 (09:32→19:54)
[2023-12-31] MEDS: ASPIR LOW (ENTERIC COATED) 81 MG PO (09:32)
[2023-12-31] MEDS: LIPITOR 40 MG PO (09:32)
[2023-12-31] MEDS: COZAAR 50 MG PO (09:32)
[2023-12-31] MEDS: COLACE 100 MG PO ×2 (09:32→19:54)
[2023-12-31 11:00] VITALS: BP 107/57; BP 97/65; PULSE 53; PULSE 71
--- NOTE | 2023-12-31 11:39 | W.PN.HOSP.TC ---
Today's Communication/Plan
-
monitor vitals
see plan
monitor orthostatics
cw abx
possible dc today or tomorrow pending orthostatics
Assessment / Plan
Assessment / Plan
Frequent Falls
Lumbar Spinal Stenosis
- Symptoms appear to be chronic and are very likely related to spinal stenosis +/- significant deconditioning at this point.
- Issues with incontinence may also be related to spinal stenosis +/- urge incontinence, difficulty getting to facilities due to unsteady gait.
- PT / OT evaluations.
- Follow for gait stability.
UTI
- UA consistent with UTI and complaints of incontinence -urine culture contaminant. Given symptoms we will treat. Switch antibiotics to cefdinir
Change in mental status suspect secondary to acute delirium
do not suspect TME
monitor, slowly improving
low dose seroquel overnight
Suspect baseline cognitive impairment
no official dx of dementia
CT without acute CVA
patient has been following up outpatient with pcp for possible dementia
MRI in 2021 showed moderate to advanced atrophy
Benign Hypertension
- Continue outpatient losartan.
- Hydralazine PRN for very high BP. also has orthostatic hypotension now. TSH,cortisol wnl
Bradycardia
- Stable. Again, this is a known and chronic issue.
- Has not had rates / pauses to a degree that would warrant PPM placement in the past.
- Monitor on telemetry for now.
TSH wnl
- Consider Cardio eval if rates decrease or significant pauses are appreciated.
History of CKD 3
Monitor
Thrombocytopenia
Monitor
CAD s/p PCI 2019
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
ASCVD
- Stable. No complaints of chest pain.
- History of PTCA with stent.
- Continue ASA, statin, etc.
mild hematuria 5/6 which is now resolved
likely from Traumatic Farrar during straight cath in the ER
no bleeding anymore
monitor
post void residual not significant
DVT Prophylaxis: SCDs; lovenox
Code Status: DNR
General: Other (88y M in no acute distress)
HEENT: PERRLA
Respiratory: Clear; No Wheezes, Rales or Rhonchi
Cardiac: S1/S2 and Bradycardia; No Murmur
GI: Soft, Non Tender, Non Distended and Normal Bowel Sounds
Musculoskeletal: No Edema
Neuro: Awake, Alert
Psych: No Anxious or Depressed
Anticipated Discharge: Within 24 hours
Subjective/Interval History
-
Date of Service: December 31, 2023
denies pain
Objective Data
-
Labs:
Laboratory Results
12/31/23
05:12
WBC 5.9
Hgb 12.3 L
Hct 37.4 L
Plt Count 140
Sodium 134 L
Potassium 4.1
Chloride 106
Carbon Dioxide 26
BUN 30 H
Creatinine 1.6 H
Glucose 101 H
Calcium 9.1
Vital Signs:
Vital Signs
Temp Pulse Resp BP Pulse Ox
97.5 F 53 14 107/57 93
12/31/23 11:00 12/31/23 11:00 12/31/23 11:00 12/31/23 11:00 12/31/23 11:00
I&O
12/30/23 12/31/23 01/01/24
06:59 06:59 06:59
Intake Total 216 / 2160 1260 / 1260
Balance 2159 / 216 1260 / 1260
--- NOTE | 2023-12-31 12:36 | CM ---
Addendum entered by Jaqueline Luz 12/31/23 14:42:
Per insurance they are out of network with [facility] to review as patient lives there.
Original Note:
Chart reviewed and patient is currently on a bed alarm, nursing aware that facility cannot accept patient on bed alarm, patient will need Auth for skilled placement and correctional counselor/case manager reached out to [employer] to initiate Auth. [facility] ,
[place].
Plan; Skilled placement at [facility], patient will need to be off bed alarm.
Patient needs Auth for skilled placement.
[2023-12-31 15:00] VITALS: BP 118/64
[2023-12-31] MEDS: LOVENOX 40 MG SC (17:12)
[2023-12-31 19:10] VITALS: BP 113/70; BP 144/85; PULSE 85; PULSE 89
[2023-12-31] MEDS: SEROQUEL 12.5 MG PO (21:24)
[2023-12-31 23:20] VITALS: BP 100/73
[2024-01-01] VITALS (7 sets, daily range): BP systolic 77–134; BP diastolic 50–82; PULSE 81–97; BMI 22.2
[2024-01-01] MEDS: COZAAR 50 MG PO (08:09)
[2024-01-01] MEDS: OMNICEF 300 MG PO ×2 (08:09→20:55)
[2024-01-01] MEDS: COLACE PO ×2 (08:09→20:03)
[2024-01-01] MEDS: ASPIR LOW (ENTERIC COATED) 81 MG PO (08:09)
[2024-01-01] MEDS: LIPITOR 40 MG PO (08:09)
[2024-01-01 08:19] LABS: % Basophils 0.4 % (0-2); % Eosinophils 1.5 % (0-6); % Immature Granulocytes 0.4 % (0-0.5); % Lymphocytes 18.3 % (20.5-51.1); % Monocytes 8.4 % (1.7-9.3); Absolute Eosinophils 0.1 10^3/uL (0-0.7); Absolute Lymphocytes 1.5 10^3/uL (1.2-3.4); Absolute Monocytes 0.7 10^3/uL (0.1-0.6); Absolute Neutrophils 5.9 10^3/uL (1.4-6.5); Hematocrit 29.3 % (39.0-52.0); Hemoglobin 9.9 g/dL (13.0-18.0); Mean Corp Hgb Conc. 33.8 g/dL (33.0-37.0); Mean Corpuscular Hgb 28.9 pg (27.0-31.0); Mean Corpuscular Volume 85.4 fL (80.0-94.0); Mean Platelet Volume 12.1 fL (7.4-10.4); Nucleated Red Blood Cells % 0 % (-); Platelet Count 170 10^3/uL (130-400); Red Blood Cell Count 3.43 10^6/uL (4.70-6.10); Red Cell Dist. Width 16.3 % (11.5-14.5); White Blood Cell Count 8.3 10^3/uL (4.8-10.8)
[2024-01-01 08:46] LABS: Blood Urea Nitrogen 28 mg/dl (9-20); Calcium 9.1 mg/dl (8.4-10.2); Carbon Dioxide 27 mmol/L (22-30); Chloride 104 mmol/L (98-107); Estimated Creatinine Clearance 34 ml/min; Glucose 111 mg/dl (70-99); Sodium 133 mmol/L (135-145); eGFR 40.93
--- NOTE | 2024-01-01 11:42 | W.PN.HOSP.TC ---
Today's Communication/Plan
-
monitor vitals
see plan
pending dispo; CM aware
cw abx
monitor mental status
Assessment / Plan
Assessment / Plan
Frequent Falls
Lumbar Spinal Stenosis
- Symptoms appear to be chronic and are very likely related to spinal stenosis +/- significant deconditioning at this point.
- Issues with incontinence may also be related to spinal stenosis +/- urge incontinence, difficulty getting to facilities due to unsteady gait.
- PT / OT evaluations.
- Follow for gait stability.
UTI
- UA consistent with UTI and complaints of incontinence -urine culture contaminant. Given symptoms we will treat. Switch antibiotics to cefdinir
Change in mental status suspect secondary to acute delirium
do not suspect TME
monitor, slowly improving
low dose seroquel at night
Suspect baseline cognitive impairment
no official dx of dementia
CT without acute CVA
patient has been following up outpatient with pcp for possible dementia
MRI in 2021 showed moderate to advanced atrophy
Benign Hypertension
- Continue outpatient losartan.
- Hydralazine PRN for very high BP. also has orthostatic hypotension now. TSH,cortisol wnl
Bradycardia
- Stable. Again, this is a known and chronic issue.
- Has not had rates / pauses to a degree that would warrant PPM placement in the past.
- Monitor on telemetry for now.
TSH wnl
- Consider Cardio eval if rates decrease or significant pauses are appreciated.
History of CKD 3
Monitor
Thrombocytopenia
Monitor
CAD s/p PCI 2019
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
ASCVD
- Stable. No complaints of chest pain.
- History of PTCA with stent.
- Continue ASA, statin, etc.
mild hematuria 5/6 which is now resolved
likely from Traumatic Farrar during straight cath in the ER
no bleeding anymore
monitor
post void residual not significant
DVT Prophylaxis: SCDs; lovenox
Code Status: DNR
General: Other (88y M in no acute distress)
HEENT: PERRLA
Respiratory: Clear; No Wheezes, Rales or Rhonchi
Cardiac: S1/S2 and Bradycardia; No Murmur
GI: Soft, Non Tender, Non Distended and Normal Bowel Sounds
Musculoskeletal: No Edema
Neuro: Awake, Alert
Psych: No Anxious or Depressed
Anticipated Discharge: Within 24 hours
Subjective/Interval History
-
Date of Service: January 01, 2024
denies pain
Objective Data
-
Labs:
Laboratory Results
01/01/24
05:58
WBC 8.3
Hgb 9.9 L
Hct 29.3 L
Plt Count 170 D
Sodium 133 L
Potassium 4.0
Chloride 104
Carbon Dioxide 27
BUN 28 H
Creatinine 1.6 H
Glucose 111 H
Calcium 9.1
Vital Signs:
Vital Signs
Temp Pulse Resp BP Pulse Ox
97.7 F 98 18 77/50 96
01/01/24 11:35 01/01/24 11:35 01/01/24 11:35 01/01/24 11:35 01/01/24 11:35
I&O
12/31/23 01/01/24 01/02/24
06:59 06:59 06:59
Intake Total 1260 / 1260 600 / 600
Balance 1260 / 1260 600 / 600
[2024-01-01] MEDS: ProAmatine 5 MG PO (12:23)
[2024-01-01] MEDS: NSS 250 IV (12:45)
--- NOTE | 2024-01-01 15:57 | CM ---
financial manager received a call from patient's daughter requesting update, bottle caser explained that patient's insurance is saying they do not have a contract with [facility], bottle caser spoke with insurance several times and received the same
answer, bottle caser reached out to [facility] admissions and they had their financial team review and they insist that they have a contract with [facility]. Call placed to Customer Service, [phone] to review.
Plan; skilled placement at [facility] pending Auth.
[2024-01-01] MEDS: LOVENOX SC (17:25)
[2024-01-01] MEDS: SEROQUEL 12.5 MG PO (20:55)
[2024-01-02 03:05] VITALS: BP 130/60
[2024-01-02 06:00] VITALS: BMI 21.9
[2024-01-02 06:41] LABS: % Basophils 0.4 % (0-2); % Eosinophils 2.4 % (0-6); % Immature Granulocytes 0.3 % (0-0.5); % Lymphocytes 17.9 % (20.5-51.1); % Monocytes 6.6 % (1.7-9.3); % Neutrophils 72.4 % (42.2-75.2); Absolute Eosinophils 0.2 10^3/uL (0-0.7); Absolute Lymphocytes 1.6 10^3/uL (1.2-3.4); Absolute Monocytes 0.6 10^3/uL (0.1-0.6); Absolute Neutrophils 6.5 10^3/uL (1.4-6.5); Hematocrit 24.3 % (39.0-52.0); Hemoglobin 8.4 g/dL (13.0-18.0); Mean Corp Hgb Conc. 34.6 g/dL (33.0-37.0); Mean Corpuscular Hgb 29.3 pg (27.0-31.0); Mean Corpuscular Volume 84.7 fL (80.0-94.0); Mean Platelet Volume 11.5 fL (7.4-10.4); Nucleated Red Blood Cells % 0 % (-); Platelet Count 174 10^3/uL (130-400); Red Blood Cell Count 2.87 10^6/uL (4.70-6.10); Red Cell Dist. Width 16.7 % (11.5-14.5)
[2024-01-02 07:04] LABS: Blood Urea Nitrogen 31 mg/dl (9-20); Calcium 9.1 mg/dl (8.4-10.2); Carbon Dioxide 27 mmol/L (22-30); Chloride 104 mmol/L (98-107); Estimated Creatinine Clearance 28 ml/min; Glucose 93 mg/dl (70-99); Potassium 3.7 mmol/L (3.5-5.1); Sodium 136 mmol/L (135-145)
[2024-01-02 07:47] VITALS: BP 142/71
[2024-01-02 07:52] VITALS: BP 128/70; BP 142/71; PULSE 77; PULSE 84
[2024-01-02] MEDS: OMNICEF 300 MG PO (10:52)
[2024-01-02] MEDS: LIPITOR 40 MG PO (10:53)
[2024-01-02] MEDS: COLACE PO ×2 (10:53→19:44)
[2024-01-02] MEDS: FIRVANQ PO (10:55)
[2024-01-02] MEDS: ASPIR LOW (ENTERIC COATED) 81 MG PO (11:05)
[2024-01-02] MEDS: COZAAR PO (11:07)
[2024-01-02 11:21] VITALS: BP 127/70
--- NOTE | 2024-01-02 12:20 | W.PN.HOSP.TC ---
Today's Communication/Plan
-
monitor vitals
see plan
start PO vanc
gentle hydration
cw seroquel
monitor renal function
Daughter updated over the phone
Assessment / Plan
Assessment / Plan
Frequent Falls
Lumbar Spinal Stenosis
- Symptoms appear to be chronic and are very likely related to spinal stenosis +/- significant deconditioning at this point.
- Issues with incontinence may also be related to spinal stenosis +/- urge incontinence, difficulty getting to facilities due to unsteady gait.
- PT / OT evaluations.
- Follow for gait stability.
UTI
- UA consistent with UTI and complaints of incontinence -urine culture contaminant. Given symptoms we will treat. Switch antibiotics to cefdinir
Change in mental status suspect secondary to acute delirium
do not suspect TME
monitor, slowly improving
low dose seroquel at night
Suspect baseline cognitive impairment
no official dx of dementia
CT without acute CVA
patient has been following up outpatient with pcp for possible dementia
MRI in 2021 showed moderate to advanced atrophy
Diarrhea, started 12/31
C. difficile positive
Start vancomycin
Benign Hypertension
- hold outpatient losartan.
- Hydralazine PRN for very high BP. also has orthostatic hypotension now. TSH,cortisol wnl
Bradycardia
- Stable. Again, this is a known and chronic issue.
- Has not had rates / pauses to a degree that would warrant PPM placement in the past.
- Monitor on telemetry for now.
TSH wnl
- Consider Cardio eval if rates decrease or significant pauses are appreciated.
renal insufficiency, history of CKD 3
Monitor
Slight bump in creatinine likely secondary to hypotension.
Thrombocytopenia
Monitor
CAD s/p PCI 2019
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
ASCVD
- Stable. No complaints of chest pain.
- History of PTCA with stent.
- Continue ASA, statin, etc.
mild hematuria 5/6 which is now resolved
likely from Traumatic Farrar during straight cath in the ER
no bleeding anymore
monitor
post void residual not significant
DVT Prophylaxis: SCDs; lovenox
Code Status: DNR
General: Other (88y M in no acute distress)
HEENT: PERRLA
Respiratory: Clear; No Wheezes, Rales or Rhonchi
Cardiac: S1/S2 and Bradycardia; No Murmur
GI: Soft, Non Tender, Non Distended and Normal Bowel Sounds
Musculoskeletal: No Edema
Neuro: Awake, Alert
Psych: No Anxious or Depressed
I spent a total of 52 minutes with the patient or on the floor. More than 50% of this time involved counseling and coordination of care.
Anticipated Discharge: 24 - 48 hours
Subjective/Interval History
-
Date of Service: January 02, 2024
denies pain
Objective Data
-
Labs:
Laboratory Results
01/02/24
05:42
WBC 9.0
Hgb 8.4 L
Hct 24.3 L
Plt Count 174
Sodium 136
Potassium 3.7
Chloride 104
Carbon Dioxide 27
BUN 31 H
Creatinine 1.9 H
Glucose 93
Calcium 9.1
Vital Signs:
Vital Signs
Temp Pulse Resp BP Pulse Ox
98.0 F 77 20 142/71 96
01/02/24 07:47 01/02/24 07:47 01/02/24 07:47 01/02/24 07:47 01/02/24 07:47
I&O
01/01/24 01/02/24 01/03/24
06:59 06:59 06:59
Intake Total 600 / 600
Balance 600 / 600
[2024-01-02 14:03] VITALS: BP 130/63; PULSE 73
[2024-01-02] MEDS: FIRVANQ 125 MG PO ×3 (15:12→23:49)
[2024-01-02] MEDS: NSS 1000 IV (15:12)
[2024-01-02] MEDS: LOVENOX 40 MG SC (18:30)
[2024-01-02] MEDS: SEROQUEL 12.5 MG PO (22:59)
[2024-01-02 23:45] VITALS: BP 123/69
[2024-01-03] MEDS: FIRVANQ 125 MG PO ×4 (05:31→23:25)
[2024-01-03 07:00] VITALS: BP 120/60
[2024-01-03 07:31] LABS: % Basophils 0.6 % (0-2); % Eosinophils 3.3 % (0-6); % Immature Granulocytes 0.4 % (0-0.5); % Lymphocytes 18.2 % (20.5-51.1); % Monocytes 6.6 % (1.7-9.3); % Neutrophils 70.9 % (42.2-75.2); Absolute Eosinophils 0.2 10^3/uL (0-0.7); Absolute Lymphocytes 1.3 10^3/uL (1.2-3.4); Absolute Monocytes 0.5 10^3/uL (0.1-0.6); Absolute Neutrophils 5.1 10^3/uL (1.4-6.5); Hemoglobin 8.5 g/dL (13.0-18.0); Mean Corp Hgb Conc. 32.7 g/dL (33.0-37.0); Mean Corpuscular Volume 88.7 fL (80.0-94.0); Mean Platelet Volume 11.1 fL (7.4-10.4); Nucleated Red Blood Cells % 0 % (-); Platelet Count 196 10^3/uL (130-400); Red Blood Cell Count 2.93 10^6/uL (4.70-6.10); Red Cell Dist. Width 16.9 % (11.5-14.5); White Blood Cell Count 7.2 10^3/uL (4.8-10.8)
[2024-01-03 07:43] LABS: Blood Urea Nitrogen 30 mg/dl (9-20); Carbon Dioxide 24 mmol/L (22-30); Chloride 107 mmol/L (98-107); Estimated Creatinine Clearance 33 ml/min; Glucose 87 mg/dl (70-99); Potassium 3.7 mmol/L (3.5-5.1); Sodium 138 mmol/L (135-145); eGFR 40.93
[2024-01-03] MEDS: ASPIR LOW (ENTERIC COATED) 81 MG PO (07:58)
[2024-01-03] MEDS: LIPITOR 40 MG PO (07:59)
[2024-01-03] MEDS: COLACE PO (08:00)
--- NOTE | 2024-01-03 10:39 | CM ---
Addendum entered by Danisha Graham 01/03/24 12:36:
[facility] does not have any available male beds, spoke with [facility] and they are reviewing referral.
Addendum entered by Danisha Graham 01/03/24 11:45:
referrals to [facility] and [facility] sent. Patient daughter has spoken with [facility] and is discussing her options with family.
Original Note:
CM spoke with admissions at [facility]. Patient plan is an [employer] plan that has no out of network benefits and patient plan does not cover [facility]. Patient daughter updated and she agreed to call to admissions at [facility] to review private pay cost. Patient
daughter requested referral to [facility] and [facility]. CM will send clinicals to see if patient able to be admitted. CM will continue to follow for discharge planning needs.
Plan; SNF
--- NOTE | 2024-01-03 11:12 | W.PN.HOSP.TC ---
Today's Communication/Plan
-
monitor vitals
see plan
cw PO vanc
daughter updated over the phone
dispo planning
Assessment / Plan
Assessment / Plan
Frequent Falls
Lumbar Spinal Stenosis
- Symptoms appear to be chronic and are very likely related to spinal stenosis +/- significant deconditioning at this point.
- PT / OT evaluations rec SNF
UTI
Finished antibiotic
Change in mental status suspect secondary to acute delirium
do not suspect TME
monitor, slowly improving
low dose seroquel at night
Suspect baseline cognitive impairment
no official dx of dementia
CT without acute CVA
patient has been following up outpatient with pcp for possible dementia
MRI in 2021 showed moderate to advanced atrophy
Diarrhea, started 12/31
C. difficile positive
Started vancomycin
monitor bowel movements; still with loose BM
Benign Hypertension
- hold outpatient losartan.
- Hydralazine PRN for very high BP. also has orthostatic hypotension now. TSH,cortisol wnl
renal insufficiency, history of CKD 3
Monitor
Slight bump in creatinine likely secondary to hypotension.
Thrombocytopenia
Monitor
CAD s/p PCI 2018
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
ASCVD
- Stable. No complaints of chest pain.
- History of PTCA with stent.
- Continue ASA, statin, etc.
mild hematuria 5/6 which is now resolved
likely from Traumatic Farrar during straight cath in the ER
no bleeding anymore
monitor
post void residual not significant
DVT Prophylaxis: SCDs; lovenox
Code Status: DNR
General: Other (88y M in no acute distress)
HEENT: PERRLA
Respiratory: Clear; No Wheezes, Rales or Rhonchi
Cardiac: S1/S2 and Bradycardia; No Murmur
GI: Soft, Non Tender, Non Distended and Normal Bowel Sounds
Musculoskeletal: No Edema
Neuro: Awake, Alert
Psych: No Anxious or Depressed
I spent a total of 52 minutes with the patient or on the floor. More than 50% of this time involved counseling and coordination of care.
Anticipated Discharge: Within 24 hours
Subjective/Interval History
-
Date of Service: January 03, 2024
Appears much alert today
Objective Data
-
Labs:
Laboratory Results
01/03/24
06:32
WBC 7.2
Hgb 8.5 L
Hct 26.0 L
Plt Count 196
Sodium 138
Potassium 3.7
Chloride 107
Carbon Dioxide 24
BUN 30 H
Creatinine 1.6 H
Glucose 87
Calcium 9.0
Vital Signs:
Vital Signs
Temp Pulse Resp BP Pulse Ox
97.9 F 74 18 120/60 94
01/03/24 07:00 01/02/24 23:45 01/03/24 07:00 01/03/24 07:00 01/03/24 07:00
I&O
01/02/24 01/03/24 01/04/24
06:59 06:59 06:59
Intake Total 240 / 240
Balance 240 / 240
[2024-01-03 16:24] VITALS: BP 111/62
[2024-01-03] MEDS: LOVENOX 40 MG SC (17:05)
[2024-01-03] MEDS: SEROQUEL 12.5 MG PO (22:23)
[2024-01-03 23:00] VITALS: BP 122/63
[2024-01-04] MEDS: FIRVANQ 125 MG PO ×4 (05:54→23:21)
[2024-01-04 07:29] VITALS: BP 139/79
[2024-01-04] MEDS: ASPIR LOW (ENTERIC COATED) 81 MG PO (07:43)
[2024-01-04] MEDS: LIPITOR 40 MG PO (07:43)
[2024-01-04 08:29] LABS: % Basophils 0.5 % (0-2); % Eosinophils 2.4 % (0-6); % Immature Granulocytes 0.5 % (0-0.5); % Lymphocytes 13.6 % (20.5-51.1); % Monocytes 6.7 % (1.7-9.3); % Neutrophils 76.3 % (42.2-75.2); Absolute Eosinophils 0.2 10^3/uL (0-0.7); Absolute Lymphocytes 1.1 10^3/uL (1.2-3.4); Absolute Monocytes 0.5 10^3/uL (0.1-0.6); Hematocrit 25.3 % (39.0-52.0); Hemoglobin 8.4 g/dL (13.0-18.0); Mean Corp Hgb Conc. 33.2 g/dL (33.0-37.0); Mean Corpuscular Hgb 29.5 pg (27.0-31.0); Mean Corpuscular Volume 88.8 fL (80.0-94.0); Mean Platelet Volume 10.7 fL (7.4-10.4); Nucleated Red Blood Cells % 0 % (-); Platelet Count 218 10^3/uL (130-400); Red Blood Cell Count 2.85 10^6/uL (4.70-6.10); White Blood Cell Count 7.9 10^3/uL (4.8-10.8)
[2024-01-04 09:18] LABS: Blood Urea Nitrogen 28 mg/dl (9-20); Calcium 8.9 mg/dl (8.4-10.2); Carbon Dioxide 27 mmol/L (22-30); Chloride 107 mmol/L (98-107); Estimated Creatinine Clearance 31 ml/min; Glucose 97 mg/dl (70-99); Potassium 3.3 mmol/L (3.5-5.1); Sodium 138 mmol/L (135-145); eGFR 38.06
--- NOTE | 2024-01-04 10:56 | W.PN.HOSP.TC ---
Today's Communication/Plan
-
Monitor vital signs and see plan
Continue with p.o. vancomycin
Monitor bowel function
Check iron panel, B12, folate
Awaiting placement
Assessment / Plan
Assessment / Plan
Frequent Falls
Lumbar Spinal Stenosis
- Symptoms appear to be chronic and are very likely related to spinal stenosis +/- significant deconditioning at this point.
- PT / OT evaluations rec SNF
UTI
Finished antibiotic
Change in mental status suspect secondary to acute delirium
do not suspect TME
monitor, slowly improving
low dose seroquel at night
Suspect baseline cognitive impairment
no official dx of dementia
CT without acute CVA
patient has been following up outpatient with pcp for possible dementia
MRI in 2021 showed moderate to advanced atrophy
Hypokalemia
Replete
Diarrhea, started 12/31
C. difficile positive
Started vancomycin
monitor bowel movements; once frequency slows down then likely can be discharged if no concern of dehydration
Benign Hypertension
- hold outpatient losartan.
- Hydralazine PRN for very high BP. also has orthostatic hypotension now. TSH,cortisol wnl
Anemia
check iron panel,b12,folate
no signs of active bleeding per nurses
renal insufficiency, history of CKD 3
Monitor
Slight bump in creatinine likely secondary to hypotension.
Thrombocytopenia
Monitor
CAD s/p PCI 2018
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
ASCVD
- Stable. No complaints of chest pain.
- History of PTCA with stent.
- Continue ASA, statin, etc.
mild hematuria / which is now resolved
likely from Traumatic Farrar during straight cath in the ER
no bleeding anymore
monitor
post void residual not significant
DVT Prophylaxis: SCDs; lovenox
Code Status: DNR
PT OT recommend SNF, awaiting placement
General: Other (88y M in no acute distress)
HEENT: PERRLA
Respiratory: Clear; No Wheezes, Rales or Rhonchi
Cardiac: S1/S2 and Bradycardia; No Murmur
GI: Soft, Non Tender, Non Distended and Normal Bowel Sounds
Musculoskeletal: No Edema
Neuro: Awake, Alert
Psych: No Anxious or Depressed
I spent a total of 51 minutes with the patient or on the floor. More than 50% of this time involved counseling and coordination of care.
Anticipated Discharge: Within 24 hours
Subjective/Interval History
-
Date of Service: January 04, 2024
denies pain
Objective Data
-
Labs:
Laboratory Results
01/04/24
07:43
WBC 7.9
Hgb 8.4 L
Hct 25.3 L
Plt Count 218
Sodium 138
Potassium 3.3 L
Chloride 107
Carbon Dioxide 27
BUN 28 H
Creatinine 1.7 H
Glucose 97
Calcium 8.9
Vital Signs:
Vital Signs
Temp Pulse Resp BP Pulse Ox
97.6 F 83 15 139/79 92
01/04/24 07:29 01/04/24 07:29 01/04/24 07:29 01/04/24 07:29 01/04/24 07:29
I&O
01/03/24 01/04/24 01/05/24
06:59 06:59 06:59
Intake Total 240 / 240
Balance 240 / 240
[2024-01-04] MEDS: KCL 20 MEQ PO (11:30)
[2024-01-04 12:10] LABS: Iron 31 ug/dl (49-181)
[2024-01-04 12:19] LABS: Percent Saturation 17 % (20-50); Total Iron Binding Capacity 180 ug/dl (261-462)
--- NOTE | 2024-01-04 12:39 | CM ---
Addendum entered by Diane Garcia 01/04/24 15:45:
Insurance authorization initiated with [employer] via [employer]
Pended reference #[id number]
Plan: [facility] once auth obtained.
Addendum entered by Diane Garcia 01/04/24 14:29:
TC from [facility] from [facility], they have a bed for patient.
Patient needs [employer] Auth.
Facility NPI# [id number]
MD NPI# [id number] (Dr Jesus López)
TT to PT/OT, await therapy notes to initiate auth.
Left VM for daughter Promise.
Original Note:
TC to [facility], they will take a look at patient.
continue looking for bed.
Will need [employer] Auth.
Plan: skilled rehab when bed available and aithorization obtained.
--- NOTE | 2024-01-04 13:02 | PTCARENOTE ---
Patient awake in am, cooperative . Did refuse breakfast, even with encouragement . Had 1 loose stool so far today. On his side at present .
[2024-01-04 14:48] VITALS: BP 102/48; PULSE 76
[2024-01-04 14:49] VITALS: BP 95/58
[2024-01-04 16:05] LABS: Folate 6.8 ng/ml (2.76-20); Vitamin B12 477 pg/ml (239-931)
[2024-01-04] MEDS: LOVENOX 40 MG SC (17:04)
[2024-01-04] MEDS: SEROQUEL 12.5 MG PO (21:09)
[2024-01-04 23:48] VITALS: BP 136/63
--- NOTE | 2024-01-05 03:24 | DOWNTIME ---
There was a [employer] Downtime on 01/04/2024 from 0100 to 01/05/2024 at 0300. Downtime documentation of patient's care, including medication administrations, has been reconciled in the electronic record per guidelines. Refer to the
patient's paper chart under the miscellaneous tab to see printed paper medication records and downtime forms.
[2024-01-05] MEDS: FIRVANQ 125 MG PO ×4 (05:48→23:00)
[2024-01-05 07:30] VITALS: BP 125/59
[2024-01-05 07:43] LABS: % Basophils 0.8 % (0-2); % Immature Granulocytes 0.5 % (0-0.5); % Lymphocytes 21.4 % (20.5-51.1); % Monocytes 9.3 % (1.7-9.3); Absolute Basophils 0.1 10^3/uL (0-0.2); Absolute Eosinophils 0.2 10^3/uL (0-0.7); Absolute Lymphocytes 1.4 10^3/uL (1.2-3.4); Absolute Monocytes 0.6 10^3/uL (0.1-0.6); Absolute Neutrophils 4.3 10^3/uL (1.4-6.5); Hematocrit 24.4 % (39.0-52.0); Hemoglobin 8.3 g/dL (13.0-18.0); Mean Corpuscular Hgb 29.6 pg (27.0-31.0); Mean Corpuscular Volume 87.1 fL (80.0-94.0); Mean Platelet Volume 10.6 fL (7.4-10.4); Nucleated Red Blood Cells % 0 % (-); Platelet Count 233 10^3/uL (130-400); Red Cell Dist. Width 17.3 % (11.5-14.5); White Blood Cell Count 6.6 10^3/uL (4.8-10.8)
[2024-01-05 08:22] LABS: Blood Urea Nitrogen 29 mg/dl (9-20); Calcium 9.1 mg/dl (8.4-10.2); Carbon Dioxide 26 mmol/L (22-30); Chloride 108 mmol/L (98-107); Estimated Creatinine Clearance 30 ml/min; Glucose 99 mg/dl (70-99); Potassium 3.6 mmol/L (3.5-5.1); Sodium 139 mmol/L (135-145); eGFR 35.54
[2024-01-05] MEDS: LIPITOR 40 MG PO (10:07)
[2024-01-05] MEDS: ASPIR LOW (ENTERIC COATED) 81 MG PO (10:07)
[2024-01-05] MEDS: TYLENOL 650 MG PO ×2 (10:27→20:26)
--- NOTE | 2024-01-05 11:51 | CM ---
CM called [employer] to check status of authorization for reference #[id number], status remains pending. CM will continue to follow for discharge planning needs.
Plan: [facility] once auth obtained.
--- NOTE | 2024-01-05 12:26 | W.PN.HOSP.TC ---
Addendum entered and electronically signed by Maria L Vega MD 01/06/24 10:00:
Spoke to daughter and updated
Addendum entered and electronically signed by Maria L Vega MD 01/06/24 07:49:
HELDER CKD stage 3
Addendum entered and electronically signed by Maria L Vega MD 01/05/24 14:02:
Drop in HB since admission
Will get a CT A/P with fall
Iron studies
Original Note:
Today's Communication/Plan
-
Encourage OOB
Decrease Seroquel
Assessment / Plan
Assessment / Plan
sleepy , arousable
CVS: S1-S2 normal
Chest: CTA B/L
Abdomen: Soft, NT / Bowel sounds present
Extremities: No edema, normal pulses
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
#Frequent Falls
Lumbar Spinal Stenosis
Symptoms appear to be chronic and are very likely related to spinal stenosis +/- significant deconditioning at this point.
PT / OT evaluations rec SNF
#UTI-Finished antibiotics
#Change in mental status suspect secondary to acute delirium
monitor, slowly improving
low dose Seroquel at night-change to 6.25 mg
Suspect baseline cognitive impairment
no official dx of dementia
CT without acute CVA
patient has been following up outpatient with pcp for possible dementia
MRI in 2021 showed moderate to advanced atrophy
#Hypokalemia-Repleted
#Diarrhea, started 12/31
C. difficile positive
Started vancomycin
monitor bowel movements; once frequency slows down then likely can be discharged if no concern of dehydration
#Benign Hypertension
Hold outpatient losartan.
Hydralazine PRN for very high BP. also has orthostatic hypotension now. TSH,cortisol wnl
#Anemia-Of chronic disease
#Renal insufficiency, history of CKD 3
Slight bump in creatinine likely secondary to hypotension.
#Thrombocytopenia
Monitor
#CAD s/p PCI 2018
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
#ASCVD
- Stable. No complaints of chest pain.
- History of PTCA with stent.
- Continue ASA, statin, etc.
#Mild hematuria 5/6 which is now resolved
likely from Traumatic Farrar during straight cath in the ER
no bleeding anymore
post void residual not significant
#DVT Prophylaxis: SCDs; lovenox
#Code Status: DNR
D/W RN
Encourage OOB
Anticipated Discharge: Within 24 hours
Subjective/Interval History
-
Date of Service: January 05, 2024
Objective Data
-
Labs:
Laboratory Results
01/05/24
07:00
WBC 6.6
Hgb 8.3 L
Hct 24.4 L
Plt Count 233
Sodium 139
Potassium 3.6
Chloride 108 H
Carbon Dioxide 26
BUN 29 H
Creatinine 1.8 H
Glucose 99
Calcium 9.1
Vital Signs:
Vital Signs
Temp Pulse Resp BP Pulse Ox
97.6 F 62 18 125/59 95
01/05/24 07:30 01/05/24 07:30 01/05/24 07:30 01/05/24 07:30 01/05/24 07:30
I&O
01/04/24 01/05/24 01/06/24
06:59 06:59 06:59
Intake Total 330 / 330
Balance 330 / 330
[2024-01-05] MEDS: FLORASTOR 250 MG PO ×2 (14:33→20:24)
--- NOTE | 2024-01-05 15:12 | PN.CDI ---
CDI
- -
CDI:
Physician Documentation Request
Admit Date: 12/26/23 20:54
Dear Doctor Gary,
Please review the following and provide your response in the progress notes.
Clinical Indicators:
Pt admitted with spinal stenosis /Falls/UTI /HX of CKD 3
Progress notes 12/31-01/04 ,' Renal insufficiency, history of CKD 3 Slight bump in creatinine likely secondary to hypotension.'
Documented per past visit H&P on 11/21/21, ' # CKD stage III Cr at baseline at 1.4 ...'
12/31/23 01/01/24 01/02/24
05:12 05:58 05:42
Creatinine 1.6 H 1.6 H 1.9 H
01/03/24 01/04/24 01/05/24
06:32 07:43 07:00
Creatinine 1.6 H 1.7 H 1.8 H
Clarify which of the following accurately represents the patient's renal status:
HELDER on CKD 3
CKD 3 only
Other ( please specify)
Criteria for HELDER*
1 Increase in serum creatinine by > or = to 0.3 mg/dL (> or = to 26.5 micromol/L) within 48 hours, OR
2 Increase in serum creatinine to > or = to 1.5 times baseline, which is known or presumed to have occurred within 7 days, OR
3 Urine volume < 0.5 nL/kg/hour for six hours
Stages of Chronic Kidney Disease*
Level Description GFR
G1 Normal or High >90
G2 Mildly decreased 60-89
G3a Mildly to moderately decreased 45-59
G3b Moderately to severely decreased 30-44
G4 Severely decreased 15-29
G5 Kidney failure <15
Use of terms such as suspected, likely, concern for, or probable (associated with a specific diagnosis that is being evaluated, monitored, or treated as if it exists) are acceptable and can be coded in the inpatient setting, when documented at the
time of discharge.
Thank you,
Roseanna Carrasco RN
CDI Specialist
[place] [facility]
Please use your independent medical judgment in providing your response.
*Source: Kidney Disease: Improving Global Outcomes (KDIGO) 2012
[2024-01-05 15:24] VITALS: BP 124/63
[2024-01-05] MEDS: OMNIPAQUE 50 ML PO (16:48)
[2024-01-05] MEDS: LOVENOX SC ×2 (16:48→17:55)
[2024-01-05] MEDS: ASPIR LOW (ENTERIC COATED) PO (17:55)
[2024-01-05] MEDS: SEROQUEL 6.25 MG PO (20:24)
[2024-01-05 23:00] VITALS: BP 106/54
[2024-01-06] MEDS: FIRVANQ 125 MG PO ×3 (05:22→17:54)
[2024-01-06 06:00] VITALS: BMI 21.5
[2024-01-06 07:30] VITALS: BP 125/67
[2024-01-06] MEDS: LIPITOR 40 MG PO (08:03)
[2024-01-06] MEDS: FLORASTOR 250 MG PO ×2 (08:03→19:32)
[2024-01-06 08:10] LABS: Hematocrit 28.5 % (39.0-52.0); Hemoglobin 9.1 g/dL (13.0-18.0); Mean Corp Hgb Conc. 31.9 g/dL (33.0-37.0); Mean Corpuscular Hgb 28.5 pg (27.0-31.0); Mean Corpuscular Volume 89.3 fL (80.0-94.0); Mean Platelet Volume 10.3 fL (7.4-10.4); Platelet Count 243 10^3/uL (130-400); Red Blood Cell Count 3.19 10^6/uL (4.70-6.10); Red Cell Dist. Width 17.3 % (11.5-14.5); White Blood Cell Count 6.4 10^3/uL (4.8-10.8)
[2024-01-06 08:41] LABS: Blood Urea Nitrogen 28 mg/dl (9-20); Calcium 9.1 mg/dl (8.4-10.2); Carbon Dioxide 25 mmol/L (22-30); Chloride 107 mmol/L (98-107); Estimated Creatinine Clearance 29 ml/min; Glucose 97 mg/dl (70-99); Potassium 3.5 mmol/L (3.5-5.1); Sodium 138 mmol/L (135-145); eGFR 35.54
--- NOTE | 2024-01-06 10:26 | CM ---
Addendum entered by Diane Garcia 01/06/24 13:54:
[facility]
Report# [phone]

Addendum entered by Diane Garcia 01/06/24 13:53:
Daughter Promise updated.
MD updated.
family checking if they can transport.
Addendum entered by Diane Garcia 01/06/24 13:41:
TC from [employer]- Skilled rehab approval
Authorization # [id number]
Approved skilled level 1
Start date 01/06/24, LCD 01/18/24, NRD 01/19/24
Updates to Charmaine Spencer [phone]

TC to [facility], await [facility] re bed availability.
Addendum entered by Diane Garcia 01/06/24 12:38:
TC from patients daughter, she contacted t and per [employer] no cliniclas received.
CM refaxed clinicals (with updated PT/OT notes).
Original Note:
Awaiting authorization for skilled rehab.
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
Plan: skilled rehab @ [facility] once auth received.
[2024-01-06 11:50] VITALS: BP 108/61; PULSE 80; O2SAT 94
--- NOTE | 2024-01-06 13:47 | W.PN.HOSP.TC ---
Today's Communication/Plan
-
Discharge
Assessment / Plan
Assessment / Plan
Awake and alert
CVS: S1-S2 normal
Chest: CTA B/L
Abdomen: Soft, NT / Bowel sounds present
Extremities: No edema, normal pulses
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
Skin- Ecchymosis - Faint Posterior Left thigh
CT abdomen and pelvis-left psoas intramuscular hematoma 4.5 into 4.3 to 12.2 cm extending from L2-L5 levels. Small left and trace right pleural effusion. Ectatic ascending aorta 3.7 cm
#Frequent Falls
Lumbar Spinal Stenosis
Symptoms appear to be chronic and are very likely related to hematoma-traumatic and spinal stenosis
PT / OT evaluations rec SNF
#UTI-Finished antibiotics
#Change in mental status suspect secondary to acute delirium
monitor, slowly improving
low dose Seroquel at night-changed to 6.25 mg
Suspect baseline cognitive impairment
no official dx of dementia
CT without acute CVA
patient has been following up outpatient with pcp for possible dementia
MRI in 2021 showed moderate to advanced atrophy
#Hypokalemia-Repleted
#Diarrhea, started 12/31
C. difficile positive
Started vancomycin, last day 01/16/24.
Soft BM , Not watery
#Benign Hypertension
Hold outpatient losartan.
Restart as OP when BP better
#Anemia-Of chronic disease
# HELDER on Renal insufficiency, history of CKD 3
Slight bump in creatinine likely secondary to hypotension.
#Thrombocytopenia
#CAD s/p PCI 2018
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
#ASCVD
- Stable. No complaints of chest pain.
- History of PTCA with stent.
- Continue ASA, statin
#Mild hematuria / which is now resolved
likely from Traumatic Farrar during straight cath in the ER
no bleeding anymore
post void residual not significant
#DVT Prophylaxis: SCDs
#Code Status: DNR
D/W RN
D/W Daughter and updated re Ct A/P
About C diff
She is interested in discharge sooner
He has been here for 10 days
Daughter called insurance
He has an Auth and a bed at [place].
Will discharge today
D/W case management
Discharge coordination time 38 min
Anticipated Discharge: Today
Subjective/Interval History
-
Date of Service: January 06, 2024
Objective Data
-
Labs:
Laboratory Results
01/06/24
07:41
WBC 6.4
Hgb 9.1 L
Hct 28.5 L
Plt Count 243
Sodium 138
Potassium 3.5
Chloride 107
Carbon Dioxide 25
BUN 28 H
Creatinine 1.8 H
Glucose 97
Calcium 9.1
Vital Signs:
Vital Signs
Temp Pulse Resp BP Pulse Ox
98.3 F 84 18 125/67 93
01/06/24 07:30 01/06/24 07:30 01/06/24 07:30 01/06/24 07:30 01/06/24 07:30
I&O
01/05/24 01/06/24 01/07/24
06:59 06:59 06:59
Intake Total 330 / 330 540 / 540
Output Total 200 / 200
Balance 330 / 330 340 / 340
--- NOTE | 2024-01-06 14:42 | W.DS.TRANS ---
Addendum entered and electronically signed by Maria L Vega MD 01/06/24 15:01:
Dictation- [id number]
Original Note:
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
-
Discharge Instructions:
Discharge Diagnosis/Procedures Ambulatory dysfunction
Fall
Left Iliopsoas hematoma
Urinary tract infection
Acute delirium
Clostridium difficult related diarrhea
Anemia
CKD stage III
Thrombocytopenia
Hypokalemia
Hypertension
Coronary artery disease with stent in 2019
Peripheral artery disease
Transient hematuria
Diet As tolerated
Activity As tolerated,With assistance
Driving Restrictions No driving
Bathing Restrictions None
Other Services PT,OT
Instructions:
Stand-Alone Forms:
Changes to Home Medications: Yes
Discharge Medications:
DC Medications w/original date entered in [email or web address]
losartan 50 mg tablet 50 mg PO DAILY Blood pressure 05/12/18
aspirin 81 mg tablet,delayed release 81 mg PO DAILY Blood clot prevention/tx 05/30/19
atorvastatin 40 mg tablet 40 mg PO DAILY High cholesterol 11/21/21
Bifidobacterium infantis 4 mg capsule (Align) 4 mg PO DAILY 12/26/23
cholecalciferol (vitamin D3) 25 mcg (1,000 unit) tablet (Vitamin D3) 25 mcg PO DAILY 12/26/23
acetaminophen 325 mg tablet 650 mg (2 x 325 mg) PO Q4HPRN PRN Mild Pain / Temp > 101 #0 tabs 01/03/24
vancomycin 50 mg/mL oral solution (Firvanq) 125 mg (2.5 mL) PO Q6 Gastrointestinal issue #300 mL 01/03/24
quetiapine 25 mg tablet 6.25 mg (1/4 x 25 mg) PO HS delirium #0 tabs 01/06/24
Home Medication Changes
new
acetaminophen 325 mg tablet 650 mg (2 x 325 mg) PO Q4HPRN PRN Mild Pain / Temp > 101 #0 tabs 01/03/24
vancomycin 50 mg/mL oral solution (Firvanq) 125 mg (2.5 mL) PO Q6 Gastrointestinal issue #300 mL 01/03/24
quetiapine 25 mg tablet 6.25 mg (1/4 x 25 mg) PO HS delirium #0 tabs 01/06/24
Hold ASA
Pending Results: No
[2024-01-06] MEDS: FERRLECIT 110 MG IV (14:54)
[2024-01-06] MEDS: DESENEX/MITRAZOL/ZEASORB 1 APPLIC TOPICAL ×2 (14:55→19:32)
[2024-01-06 15:15] VITALS: BP 130/71
[2024-01-06 20:01] VITALS: BP 107/61; PULSE 79
== END 2024-01-06 20:15 | DRG 552 ==
LOC: 4 WEST ACU 20:54
PROVIDERS: Internal Medicine; Nurse Practitioner; ADMITTING PHYSICIAN Hospitalist; ATTENDING PHYSICIAN Hospitalist; EMERGENCY PHYSICIAN Emergency Medicine; FAMILY PHYSICIAN Internal Medicine Geriatric Medicine
DX: M48.061 Spinal stenosis, lumbar region without neurogenic claudication (principal); N39.0 Urinary tract infection, site not specified; A04.72 Enterocolitis due to Clostridium difficile, not specified as recurrent; N17.9 Acute kidney failure, unspecified; F05 Delirium due to known physiological condition; R62.7 Adult failure to thrive; R29.6 Repeated falls; E78.00 Pure hypercholesterolemia, unspecified; N18.30 Chronic kidney disease, stage 3 unspecified; R00.1 Bradycardia, unspecified; G31.84 Mild cognitive impairment of uncertain or unknown etiology; I12.9 Hypertensive chronic kidney disease with stage 1 through stage 4 chronic kidney disease, or unspecified chronic kidney disease; I73.9 Peripheral vascular disease, unspecified; N39.41 Urge incontinence; R31.9 Hematuria, unspecified; D69.6 Thrombocytopenia, unspecified; E87.6 Hypokalemia; D64.9 Anemia, unspecified; I95.1 Orthostatic hypotension; H54.61 Unqualified visual loss, right eye, normal vision left eye; I25.10 Atherosclerotic heart disease of native coronary artery without angina pectoris; M51.36 Other intervertebral disc degeneration, lumbar region; I44.0 Atrioventricular block, first degree; S70.02XA Contusion of left hip, initial encounter; W19.XXXA Unspecified fall, initial encounter; Y93.9 Activity, unspecified; Y92.009 Unspecified place in unspecified non-institutional (private) residence as the place of occurrence of the external cause; Z60.2 Problems related to living alone; Z66 Do not resuscitate; Z95.5 Presence of coronary angioplasty implant and graft; Z87.891 Personal history of nicotine dependence
CPT/HCPCS: 51701; 70450; 74176; 80048; 80053; 81003; 81015; 82533; 82550; 82607; 82728; 82746; 83540; 83550; 84439; 84443; 84466; 85025; 85027; 87045; 87046; 87070; 87086; 87324; 87427; 87449; 89055; 93005; 96374; 97116; 97163; 97167; 97530; 97535; 99285; J2358; J2916

== ENCOUNTER → 2024-01-10 11:26 | Outpatient (REF) | payer OTHER, MEDICARE, SELFPAY ==
[2024-01-10 13:10] LABS: Hematocrit 28.3 % (39.0-52.0); Hemoglobin 9.3 g/dL (13.0-18.0); Mean Corp Hgb Conc. 32.9 g/dL (33.0-37.0); Mean Corpuscular Hgb 29.9 pg (27.0-31.0); Mean Platelet Volume 10.5 fL (7.4-10.4); Platelet Count 233 10^3/uL (130-400); Red Blood Cell Count 3.11 10^6/uL (4.70-6.10); Red Cell Dist. Width 18.3 % (11.5-14.5); White Blood Cell Count 5.2 10^3/uL (4.8-10.8)
[2024-01-10 13:26] LABS: ALT (SGPT) 48 U/L (0-50); AST (SGOT) 95 U/L (17-59); Albumin 2.3 g/dl (3.5-5.0); Alkaline Phosphatase 75 U/L (38-126); Blood Urea Nitrogen 29 mg/dl (9-20); Calcium 9.1 mg/dl (8.4-10.2); Carbon Dioxide 23 mmol/L (22-30); Chloride 111 mmol/L (98-107); Glucose 85 mg/dl (70-99); Potassium 3.7 mmol/L (3.5-5.1); Sodium 143 mmol/L (135-145); Total Bilirubin 1.8 mg/dl (0.2-1.3); Total Protein 4.9 g/dl (6.3-8.2); eGFR 29.53
== END ==
LOC: OLABWHC 11:26
PROVIDERS: ATTENDING PHYSICIAN Family Medicine
DX: A04.72 Enterocolitis due to Clostridium difficile, not specified as recurrent (principal); E87.6 Hypokalemia
CPT/HCPCS: 36415; 80053; 85027

== ENCOUNTER → 2024-01-11 10:55 | Outpatient (REF) | payer OTHER, MEDICARE, SELFPAY ==
[2024-01-11 12:16] LABS: Blood Urea Nitrogen 31 mg/dl (9-20); Calcium 8.9 mg/dl (8.4-10.2); Carbon Dioxide 25 mmol/L (22-30); Chloride 111 mmol/L (98-107); Glucose 95 mg/dl (70-99); Potassium 3.4 mmol/L (3.5-5.1); Sodium 143 mmol/L (135-145); eGFR 26.48
== END ==
LOC: OLABWHC 10:55
PROVIDERS: ATTENDING PHYSICIAN Family Medicine
DX: A04.72 Enterocolitis due to Clostridium difficile, not specified as recurrent (principal); E87.6 Hypokalemia
CPT/HCPCS: 80048

== ENCOUNTER → 2024-01-12 16:26 | Outpatient (REF) | payer OTHER, MEDICARE, SELFPAY ==
[2024-01-12 17:09] LABS: Blood Urea Nitrogen 34 mg/dl (9-20); Carbon Dioxide 25 mmol/L (22-30); eGFR 27.93
[2024-01-12 17:22] LABS: Calcium 8.6 mg/dl (8.4-10.2); Chloride 111 mmol/L (98-107); Glucose 84 mg/dl (70-99); Potassium 3.3 mmol/L (3.5-5.1); Sodium 141 mmol/L (135-145)
== END ==
LOC: OLABWHC 16:26
PROVIDERS: ATTENDING PHYSICIAN Family Medicine
DX: A04.72 Enterocolitis due to Clostridium difficile, not specified as recurrent (principal); E87.6 Hypokalemia
CPT/HCPCS: 36415; 80048

== ENCOUNTER → 2024-01-18 10:08 | Outpatient (REF) | payer OTHER, SELFPAY ==
[2024-01-18 11:32] LABS: Hematocrit 28.2 % (39.0-52.0); Mean Corp Hgb Conc. 31.9 g/dL (33.0-37.0); Mean Corpuscular Hgb 29.5 pg (27.0-31.0); Mean Corpuscular Volume 92.5 fL (80.0-94.0); Mean Platelet Volume 11.2 fL (7.4-10.4); Platelet Count 215 10^3/uL (130-400); Red Blood Cell Count 3.05 10^6/uL (4.70-6.10); White Blood Cell Count 4.6 10^3/uL (4.8-10.8)
[2024-01-18 12:01] LABS: Blood Urea Nitrogen 43 mg/dl (9-20); Calcium 9.1 mg/dl (8.4-10.2); Carbon Dioxide 22 mmol/L (22-30); Chloride 114 mmol/L (98-107); Glucose 83 mg/dl (70-99); Potassium 3.6 mmol/L (3.5-5.1); Sodium 144 mmol/L (135-145); eGFR 26.48
== END ==
LOC: OLABWHC 10:08
PROVIDERS: ATTENDING PHYSICIAN Family Medicine
DX: E87.6 Hypokalemia (principal); Z95.5 Presence of coronary angioplasty implant and graft; I73.9 Peripheral vascular disease, unspecified; N18.30 Chronic kidney disease, stage 3 unspecified; I10 Essential (primary) hypertension
CPT/HCPCS: 36415; 80048; 85027